=== PATIENT | male | born 1950 | race Caucasian/White ===

== ENCOUNTER 2022-10-03 13:22 | Outpatient (CLI) | payer MEDICARE, SELFPAY ==
[2022-10-03 14:01] LABS: Appearance Urine Clear (Clear); Bilirubin Urine Negative (Negative); Blood Urine Negative (Negative); Color Urine Yellow (Yellow); Glucose Urine UA Negative (Negative); Ketones Urine Negative (Negative); Leukocyte Esterase Ur Negative LEU/UL (Negative); Nitrate Urine Negative (Negative); Protein Urine Negative (Negative); Specific Grav Ur 1.008 (1.001-1.035); Urobilinogen Urine 0.2 mg/dL (<2.0); pH Urine 5.5 (5.0-9.0)
[2022-10-03 14:04] LABS: Add Urine Microscopic? NO
[2022-10-03 14:17] LABS: Prothrombin Time 12.8 Seconds (11.1-14.7)
[2022-10-03 14:18] LABS: Partial Thromboplastin Time 27.9 SECONDS (22.3-36.8)
== END 2022-10-03 13:23 | disposition home or self-care (01) ==
LOC: ANHSURGERY 13:31
PROVIDERS: Visit Provider Neurological Surgery
DX: Z01.818 Encounter for other preprocedural examination (principal); M48.062 Spinal stenosis, lumbar region with neurogenic claudication; M48.061 Spinal stenosis, lumbar region without neurogenic claudication; M47.816 Spondylosis without myelopathy or radiculopathy, lumbar region; I10 Essential (primary) hypertension; E78.00 Pure hypercholesterolemia, unspecified; M51.36 Other intervertebral disc degeneration, lumbar region
CPT/HCPCS: 36415; 81003; 85610; 85730; 86850; 86900; 86901

== ENCOUNTER 2022-10-06 00:19 | Day surgery (SDC) | payer MEDICARE, SELFPAY ==
[2022-09-30 09:02] VITALS: BMI 25.9
--- NOTE | 2022-09-30 09:23 | PC.NURSE ---
PRE-OP INSTRUCTIONS, PLEASE READ CAREFULLY Report to the Outpatient Waiting Room, entrance under the green pavilion located off [facility], at time _0900_ on date _10/06/22_. Planned Procedure Time: _1100_. Time changes happen often and if your time is changed the preop area will call you the afternoon before. - You and your visitor will be asked to self-screen and do not enter if you have any COVID symptoms. - Only one visitor is requested with a max of two and NO children visitors are allowed at this time. - The patient visitor may be requested to leave or wait in car when not with patient due to distancing restrictions. - A mask is optional within the hospital at this time. Patients may have clear liquids (water, carbonated beverages, clear teas, apple juice) until 3 hours prior to surgery (0800 AM) with a maximum of 20 ounces. - No food from midnight until time of surgery Take the following medications with a SIP of water the morning of surgery: _TYLENOL IF NEEDED_ DO NOT STOP ANY OF YOUR OTHER PRESCRIPTION MEDICATIONS PRIOR TO SURGERY ?EXCEPT THE FOLLOWING Medications to discontinue per physician ___NONE____, Date to take last dose Please no make-up, nail japanese, hairspray, perfume, deodorant, or body powder the day of surgery. No jewelry (including any body piercings) or valuables the day of surgery, leave them at home. Please take a shower or bath the night before, or the morning of, surgery with an antibacterial soap. Wear comfortable, loose fitting clothing. - Jewelry must be removed prior to entering the operating room. Rings and piercings that are not removed may be cut off. - The hospital will not accept responsibility for valuables. - Please leave all valuables, including medications, at home the day of surgery. If you are going home after surgery, a licensed funeral limousine driver must drive you home. - NO public transportation without another adult if you receive anesthesia. - We recommend that an adult stay with you for 24 hours following discharge. - We also recommend that you do not drive, make important decision, drink alcoholic beverages, or take any drugs that were not prescribed by your health care provider for at least 24 hours after your discharge time. Follow any additional instructions given to you from your surgeon. If you or anyone in your household have experienced Covid symptoms in the past week, please notify your surgeon or the nurse liaison at the phone number below for possible testing. Telephone instructions given to _PATIENT_and asked if any additional questions and then verbalized understanding. Patient advised to call surgeon office or pre surgery nurse liaison [phone] if any additional questions.
[2022-10-06] VITALS (12 sets, daily range): BP systolic 107–139; BP diastolic 64–93; PULSE 62–80; RESP 12–20; TEMP 36–36.4; O2SAT 90–100
--- NOTE | ~2022-10-06 | XR_ITS ---
EXAMINATION: XR fluoroscopy no charge DATE: 10/06/2022 14:06 INDICATION: Lumbar degenerative disc disease. TECHNIQUE: A single lateral intraoperative fluoroscopic view of the lumbar spine was obtained. I was not present. Fluoroscopy exposure time was 1 second. COMPARISON: None. FINDINGS: An instrument overlies the posterior elements at L4-L5. There is severe lumbar spondylosis. IMPRESSION: 1. Severe lumbar spondylosis. Reviewed, dictated and finalized at location A.
[2022-10-06] MEDS: LACTATED RINGERS 1,000 ML 30 ML IV CONT ×2 (10:12→13:44)
--- NOTE | 2022-10-06 10:14 | WPDANESEPPF ---
Anes - Initial Pre Proc Eval Procedure: Operation Date: 10/06/22 11:30 Proposed Procedures p L4-5 Lumbar Laminectomy - Juan José Vargas MD Date/Time: 10/06/22 10:14 Surgeon: Juan José Vargas MD Pre Op Diagnosis: L4-5 stenosis Patient Data Age: 72 Gender: M Height: 1.78 m Weight: 81.7 kg Last Vital Signs Temp 36.4 C L 10/06/22 09:44 Pulse 67 10/06/22 09:44 Resp 18 10/06/22 09:44 BP 136/93 H 10/06/22 09:44 Pulse Ox 98 10/06/22 09:44 O2 Del Method Room Air 10/06/22 09:44 Allergies Allergy/AdvReac Type Severity Reaction Status Date / Time No Known Allergies Allergy Verified 09/30/22 09:00 Home Medications Medication Instructions Recorded Confirmed Type omeprazole 20 mg capsule,delayed 20 mg PO DAILY 07/11/22 10/06/22 History release acetaminophen 500 mg tablet 1,000 mg PO QID PRN Pain 09/30/22 10/06/22 History atorvastatin 10 mg tablet 10 mg DAILY 09/30/22 10/06/22 History Patient hx anesthesia problems: none Family hx anesthesia problems: none Results Review: All pre-operative results and documents have been reviewed as part of the pre-operative evaluation. [facility] Past Medical History Medical History Esophageal reflux Hypercholesteremia Hypertension Surgical History Surgical History H/O colonoscopy (~06/2011) History of knee replacement History of rotator cuff surgery Family History Family History Father Colon cancer Sibling Breast cancer Grandparent Heart disease Mother Arthritis Social History Social History Smoking status: Never smoker Second hand tobacco smoke exposure: No Alcohol intake: current Drinks per week: 7 Alcohol use details: 5-6/WEEK Substance use: never Substance use type: does not use Living arrangements: with family Spiritual care concerns: No Anes - Eval Final PreProcedure Day of Procedure 10/06/22 10:14 Patient weight: normal Heart: regular rate and rhythm Lungs: clear to auscultation Airway: Mallampati scale class II Neurological: alert and oriented Last oral intake: >/= 8 hours ASA classification: III Emergent: no Anesthetic plan: proceed Anesthesia type and monitoring: general ETT and standard monitoring Results Review: All pre-operative results and documents have been reviewed as part of the pre-operative evaluation. Informed Consent: The patient's anesthetic plan and its attendant risks and benefits were discussed with the patient/family/POA. Questions were solicited and answers provided to the satisfaction of the patient/family/POA.
--- NOTE | 2022-10-06 11:32 | PM.IMHP ---
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 He has not changed appreciably since we last saw him. He does not have specific muscle group weakness or dermatomal numbness. He is not having any bowel or bladder difficulty. Review of Systems Review of Systems: Patient denies shortness of breath, cough, fever, chills, nausea, vomiting, weight loss, weight gain, chest pain, dysuria. He has back and leg pain and claudication as above. His review of systems is otherwise negative on 12 systems except as noted elsewhere. [facility] Past Medical History Medical History Esophageal reflux Hypercholesteremia Hypertension Surgical History Surgical History H/O colonoscopy (~06/2011) History of knee replacement History of rotator cuff surgery Family History Family History Father Colon cancer Sibling Breast cancer Grandparent Heart disease Mother Arthritis Social History Social History Smoking status: Never smoker Second hand tobacco smoke exposure: No Alcohol intake: current Drinks per week: 7 Alcohol use details: 5-6/WEEK Substance use: never Substance use type: does not use Living arrangements: with family Spiritual care concerns: No Meds Home Medications and Allergies Home Medications Medication Instructions Recorded Confirmed Type omeprazole 20 mg capsule,delayed 20 mg PO DAILY 07/11/22 10/06/22 History release acetaminophen 500 mg tablet 1,000 mg PO QID PRN Pain 09/30/22 10/06/22 History atorvastatin 10 mg tablet 10 mg DAILY 09/30/22 10/06/22 History Allergies Allergy/AdvReac Type Severity Reaction Status Date / Time No Known Allergies Allergy Verified 09/30/22 09:00 Vital Signs Vital Signs - 24 hr 10/06/22 09:44 Temperature 97.5 F L Pulse Rate 67 Respiratory Rate 18 Blood Pressure 136/93 H Pulse Oximetry 98 Oxygen Delivery Room Air Exam Narrative: Strength is 5/5 in all muscle groups of the bilateral lower extremities. Sensation is intact to light touch throughout the lower extremities. Breathing is unlabored, he is speaking in complete sentences without difficulty. Regular rate and rhythm Assessment and Plan Assessment and plan (1) Degenerative disc disease, lumbar: Code(s): M51.36 - Other intervertebral disc degeneration, lumbar region Status: Acute (2) Foraminal stenosis of lumbar region: Code(s): M48.061 - Spinal stenosis, lumbar region without neurogenic claudication Status: Acute (3) Lumbar stenosis with neurogenic claudication: Code(s): M48.062 - Spinal stenosis, lumbar region with neurogenic claudication Status: Acute (4) Lumbar spondylosis: Code(s): M47.816 - Spondylosis without myelopathy or radiculopathy, lumbar region Status: Acute Plan Andrew is a 72-year-old gentleman who presents for L4-5 laminectomy for neurogenic claudication secondary to spinal stenosis. I described to him again that operation, its risks, potential benefits, the operative and postoperative course in detail and answered all his questions personally. He indicates understanding and elects to proceed with that operation.
--- NOTE | 2022-10-06 11:35 | WPDHPUPDATE1 ---
History and Physical Update Update Date/Time: 10/06/22 11:35 History and Physical has been reviewed, including an updated exam of the patient. There are NO changes in the patient's condition. Risks, benefits, and alternatives have been discussed and questions answered. Patient agrees to proceed with procedure.
[2022-10-06] MEDS: ceFAZolin 2 GM/D5W 50 ML 2 GM/50 ML BAG IVPB (11:37)
[2022-10-06] MEDS: LIDO 1%/EPINEPHRINE 1:100,000 50 ML VIAL 10 ML INFILTRATE (12:37)
--- NOTE | 2022-10-06 13:33 | P.OP_ITS ---
Procedure Note - Detailed Date of Procedure 10/06/22 Pre-op Diagnosis L4-5 stenosis Post-op Diagnosis Same Procedure Performed L4-5 laminectomy Surgeon Juan Joés Vargas MD [employer] Anesthesia General Description of Procedure Patient was brought to the operating room in the supine position, was sedated, intubated and placed under general anesthesia in routine fashion. He was then turned into the prone position on a Jose frame. The of operation on his back was examined, marked for incision, prepped and draped in routine sterile fashion. Incision was marked over the L4-L5 spinous processes in the midline. This area was injected with 0.5% lidocaine with [id number] epinephrine. Intravenous antibiotics given prior to incision. Incision was made with a 10 blade scalpel down to the lumbodorsal fascia. Subperiosteal dissection of the muscle soft tissue away from spinous process lamina at L4-L5 was performed with a subperiosteal elevator and Bovie cautery. A verifying x-rays obtained to verify the level of operation. The L4 and L5 spinous processes were removed with a Kate rongeur. Midas Zay drill with an Belton bit was used to thin the lamina in the midline and to the soft contents of the canal were encountered. A curved curette and Kerrison punch were used to remove bone and ligament in the midline and to the dura was exposed. In the lateral recess careful dissection of the dura away from the overgrown bone and ligament was performed and then Kerrison punches were used to remove additional bone and ligament superiorly to inferiorly. These maneuvers were performed until a O'Brien could be placed in the lateral epidural space to confirm lack of compression. The wound was then copiously irrigated with bacitracin irrigation all bleeding stopped with bipolar and Bovie cautery and Gelfoam thrombin powder. A medium Hemovac drain was left in the subfascial position. After the inferior right of the incision. The wound was then closed in layered fashion with 2-0 Vicryl interrupted sutures in the lumbodorsal fascia and Daniel's layer. 3-0 Vicryl buried interrupted sutures were placed in the dermis and the skin was closed with a running 4-0 Monocryl subcuticular stitch and dressed with Dermabond and a Telfa and Tegaderm dressing. The patient was allowed to wake up in the operating room and was taken to the recovery room in stable condition. There were no immediate complications of this operation. All counts were reported correct at the end of the case. Blood loss was 200 cc. The patient is neurologically at his baseline postoperatively. CPT codes: 91559, 25231 Estimated Blood Loss 200 IV Fluids 1,500 Drains Yes Complications None Condition Stable Disposition PACU [facility] Billing Surgery - Charge Forward: Surgery Billing
[2022-10-06] MEDS: fentaNYL CITRATE INJ (*CRX) 100 MCG/2 ML VIAL 25 MCG IV PUSH ×2 (14:29→14:31)
--- NOTE | 2022-10-06 15:27 | ADMGEN ---
This patient, Andrew Olivera, was admitted to 3 [facility] Surg Room 319-01. Patient/family oriented to hospital policies and general routines including ID bracelet, bed and alarms, visiting hours, pain management, procedures, bathroom and other care routines, personal items, smoking policy, room service/diet, and visiting hours. Information on how to activate the Rapid Response Team has been discussed. Patient/Family are encouraged to report perceived risks to care and to ask questions if they do not understand what they are told or what they should do.
[2022-10-06] MEDS: KCL 20 MEQ/D5/0.45% SOD CHL 1,000 ML 100 ML IV CONT (15:38)
[2022-10-06] MEDS: MORPHINE SULFATE (*CRX) 2 MG/ML INJ IV PUSH (15:39)
[2022-10-06] MEDS: HYDROcodone/acetaminophen (*CRX) 5-325 MG TABLET 1 TAB PO (17:57)
[2022-10-06] MEDS: ceFAZolin 1 GM/NS 50 ML 1 GM/50 ML BAG IVPB (18:37)
[2022-10-06] MEDS: DOCUSATE SODIUM 100 MG CAPSULE PO (20:48)
[2022-10-07] MEDS: HYDROcodone/acetaminophen (*CRX) 5-325 MG TABLET 1 TAB PO (00:55)
[2022-10-07 02:18] VITALS: BP 121/79; PULSE 69; RESP 14; TEMP 36.8; O2SAT 96
[2022-10-07] MEDS: ceFAZolin 1 GM/NS 50 ML 1 GM/50 ML BAG IVPB ×2 (04:03→11:33)
[2022-10-07 05:24] VITALS: BP 121/79; PULSE 69; RESP 14; TEMP 36.8; O2SAT 96
[2022-10-07] MEDS: CYCLOBENZAPRINE HCL 10 MG TABLET PO (08:18)
[2022-10-07] MEDS: HYDROcodone/acetaminophen (*CRX) 10-325 MG TABLET 1 TAB PO ×2 (08:18→15:57)
[2022-10-07] MEDS: SENNA/DOCUSATE SODIUM TABLET 1 TAB PO (08:19)
[2022-10-07] MEDS: ATORVASTATIN 10 MG TABLET PO (08:19)
[2022-10-07] MEDS: DOCUSATE SODIUM 100 MG CAPSULE PO (08:19)
[2022-10-07 10:18] VITALS: BP 123/76; PULSE 72; RESP 16; TEMP 36.8; O2SAT 97
--- NOTE | 2022-10-07 13:40 | WPDANESPN ---
Anes - Prog Note Post-Op Date/Time: 10/07/22 13:40 Cardiovascular status: normal Respiratory status: normal Airway patency: baseline Mental status: baseline Post-Op hydration status: normal Vital Signs: Last Vital Signs Temp 98.3 F 10/07/22 10:18 Pulse 72 10/07/22 10:18 Resp 16 10/07/22 10:18 BP 123/76 10/07/22 10:18 Pulse Ox 97 10/07/22 10:18 O2 Del Method Room Air 10/07/22 08:11 O2 Flow Rate 8 10/06/22 14:05 Pain Score (VAS): 0/10 I/O: Intake & Output 10/06/22 10/07/22 10/07/22 23:59 07:59 15:59 Intake Total 472 50 240 Output Total 615 Balance -143 50 240 Post-procedural complaints: none Patient Feedback: Patient satisfied with anesthetic care.
[2022-10-07 14:18] VITALS: BP 121/73; PULSE 64; RESP 17; TEMP 36.6; O2SAT 95
== END 2022-10-07 18:05 | disposition home or self-care (01) ==
LOC: ANHSURGERY 09:30 → ANH3MEDSUR 15:22
PROVIDERS: Visit Provider Neurological Surgery
PROC: (CPT 63005; principal; 2022-10-06 11:30)
DX: M48.062 Spinal stenosis, lumbar region with neurogenic claudication (principal); M47.816 Spondylosis without myelopathy or radiculopathy, lumbar region; M51.36 Other intervertebral disc degeneration, lumbar region; I10 Essential (primary) hypertension; E78.00 Pure hypercholesterolemia, unspecified; K21.9 Gastro-esophageal reflux disease without esophagitis
CPT/HCPCS: 63047; 97161; 97165; 97535; 99199; A9270; J0690; J1100; J1940; J2250; J2270; J2405; J2704; J3010; J3480; J7120